=== PATIENT | female | born 1975 | race Caucasian/White ===

== ENCOUNTER 2019-02-14 09:28 | Emergency (ER) | payer BC, OTHER ==
[2019-02-14 09:45] VITALS: BP 119/77
--- NOTE | 2019-02-14 10:34 | UC ---
Knee Pain HPI - HPI Summary HPI Summary: Per surveyor: "c/o L knee pain that started Saturday evening. States has been worsening. Denies any injury. " -pain started gradyy. was doing well yesterday and even walked around grocery store. much worse today. unable to bear weight. needs wheelchair here. -no CP/SOB. -no recent travel. not on OCP. no recent surgery. no personal or FHx blood clots -unable to bear weight. pain is worse when standing and trying to bend knee - 10 /10. sitting is 5/10. - History of Current Complaint Chief Complaint: UCLowerExtremity Stated Complaint: LEFT KNEE PAIN Time Seen by Provider: 02/14/19 09:57 Hx Last Menstrual Period: unknown Pain Intensity: 5 - Allergies/Home Medications Allergies/Adverse Reactions: Allergies Allergy/AdvReac Type Severity Reaction Status Date / Time penicillin V Allergy Unknown Verified 02/14/19 09:39 Reaction Details Penicillins Allergy Unknown Verified 02/14/19 09:39 Reaction Details Home Medications: Home Medications Ibuprofen TAB* [Advil TAB*] 200 mg PO ONCE PRN 02/14/19 [History Confirmed 02/14] PMH/Surg Hx/FS Hx/Imm Hx Previously Healthy: Yes - Surgical History Surgical History: Yes Surgery Procedure, Year, and Place: tubal implant for control - Family History Known Family History: Positive: Other - no DVTs/PEs - Social History Alcohol Use: None Substance Use Type: None Smoking Status (MU): Former Smoker When Did the Patient Quit Smoking/Using Tobacco: 5-10 years aog - Immunization History Most Recent Influenza Vaccination: JUN 2013 Review of Systems All Other Systems Reviewed And Are Negative: Yes Constitutional: Positive: Negative Skin: Positive: Negative Eyes: Positive: Negative ENT: Positive: Negative Respiratory: Positive: Negative Cardiovascular: Positive: Negative Gastrointestinal: Positive: Negative Genitourinary: Positive: Negative Motor: Positive: Negative Neurovascular: Positive: Negative Musculoskeletal: Positive: Other: - pain/swelling left posterior distal thigh, popliteal fossa and calf. Neurological: Positive: Negative Psychological: Positive: Negative Is Patient Immunocompromised?: No Physical Exam Triage Information Reviewed: Yes Appearance: Pain Distress - sitting in WC. Vital Signs: Initial Vital Signs Temp 98.8 F 02/14/19 09:40 Pulse 92 02/14/19 09:40 Resp 16 02/14/19 09:40 BP 119/77 02/14/19 09:40 Pulse Ox 99 02/14/19 09:40 Vital Signs Reviewed: Yes Eye Exam: Normal ENT Exam: Normal ENT: Positive: Pharynx normal Neck exam: Normal Respiratory Exam: Normal Respiratory: Positive: Chest non-tender, Normal breath sounds, No respiratory distress, No accessory muscle use. Negative: Crackles, Rhonchi, Stridor, Wheezing Cardiovascular Exam: Normal Cardiovascular: Positive: RRR, No Murmur, Pulses Normal, Brisk Capillary Refill. Negative: Tachycardia Abdominal Exam: Normal Abdomen Description: Positive: Nontender, Soft Musculoskeletal Exam: Normal Neurological Exam: Normal Psychological Exam: Normal Skin Exam: Normal Knee Pain Course/Dx - Course Course Of Treatment: need to r/o DVT. Agrees to ER eval. wishes to go to [place] d/t proximity. will drive her. instructed of improtance. she is very agreeable DDx includes Elizabeth's cyst. needs US. -spoke w/ Portia Hernandez NP at [facility] who accepts pt 10:37 AM -declines ambulance. -very agreeable w/ plan - Differential Dx/Diagnosis Differential Diagnosis/HQI/PQRI: Sprain, Strain, Other - DVT, Elizabeth's cyst Provider Diagnosis: Leg pain, posterior Discharge - Sign-Out/Discharge Documenting (check all that apply): Patient Departure All imaging exams completed and their final reports reviewed: No Studies - Discharge Plan Condition: Fair Disposition: HOME-RECOMMEND TO ED Referrals: Calista Barrow NP [Primary Care Provider] - 5 Days Additional Instructions: We atlked about the improtance of going directly to the ER to be evaluated for blood clot in your leg that has the potential to be life threatening. Go directly to the ER from here. - Billing Disposition and Condition Condition: FAIR Disposition: Home-Recommend to ED
== END 2019-02-14 10:54 | disposition home health service (06) ==
LOC: UCCORT 09:28
DX: M79.662 Pain in left lower leg (principal); Z88.0 Allergy status to penicillin; Z87.891 Personal history of nicotine dependence
CPT/HCPCS: 99202; G0463